=== PATIENT | female | born 1970 | race Hispanic/Latino ===

== ENCOUNTER → 2020-07-23 | Outpatient (CLI) | payer BC | LOC: CT 17:45 | PROVIDERS: ATTEND Family Medicine | DX: R10.84 Generalized abdominal pain (principal); R93.5 Abnormal findings on diagnostic imaging of other abdominal regions, including retroperitoneum | CPT/HCPCS: 74176 ==

== ENCOUNTER → 2021-06-16 | Outpatient (CLI) | payer BC | LOC: RAD 12:01 | PROVIDERS: ATTEND Internal Medicine Pulmonary Disease | DX: R06.02 Shortness of breath (principal) | CPT/HCPCS: 71046 ==